=== PATIENT | male | born 1985 | race Caucasian/White ===

== ENCOUNTER → 2021-07-31 | Outpatient (CLI) | payer OTHER ==
[~2021-07-31] MED LIST: ALEVE220 MG PO; IBUPROFEN800 MG PO
== END ==
LOC: KOH-I 08:06
DX: R10.84 Generalized abdominal pain (principal); K76.0 Fatty (change of) liver, not elsewhere classified; R16.1 Splenomegaly, not elsewhere classified
CPT/HCPCS: 76700

== ENCOUNTER 2021-11-26 16:07 | Emergency (ER) | payer OTHER ==
[2021-11-26 16:42] LABS: HEMOGLOBIN 13.7 gm/dl (14.0-17.5); RED BLOOD COUNT 4.66 M/UL (4.20-5.50); WHITE BLOOD COUNT 15.3 K/UL (4.5-11.0)
[2021-11-26 17:01] LABS: BUN/CREATININE RATIO 15 (0-10)
[2021-11-26] MEDS ORDERED: CEPHALEXIN500 MG PO (17:41)
== END 2021-11-26 17:51 | disposition home or self-care (01) ==
LOC: ER1 16:07
PROVIDERS: Physician Assistant
DX: L03.116 Cellulitis of left lower limb (principal); R40.2410 Glasgow coma scale score 13-15, unspecified time
CPT/HCPCS: 73630; 80053; 85025; 99283